=== PATIENT | female | born 1950 | race Caucasian/White ===

== ENCOUNTER → 2022-04-29 15:07 | Outpatient (CLI) | payer MEDICARE, OTHER, SELFPAY ==
[2022-04-29 15:49] LABS: Influenza A - CEPHEID Flu A NEGATIVE (NEGATIVE); Influenza B - CEPHEID Flu B NEGATIVE (NEGATIVE); Respiratory Syncytial Virus Negative (Negative)
[2022-04-29 15:55] LABS: COVID-19 CEPHEID 4-PLEX PCR Negative (Negative)
== END ==
PROVIDERS: Visit Provider Physician Assistant
DX: J34.89 Other specified disorders of nose and nasal sinuses (principal)
CPT/HCPCS: 0241U

== ENCOUNTER → 2022-04-29 15:49 | Outpatient (CLI) | payer OTHER, SELFPAY ==
--- NOTE | 2022-04-29 15:51 | DI.RAD.S_ITS ---
PROCEDURE: XR CHEST 2V INDICATIONS: Asthma TECHNIQUE: 2 views of the chest were acquired. COMPARISON: None. FINDINGS: Surgical changes and devices: Sternotomy wires and mediastinal clips are seen. Lungs and pleura: Lungs are clear. No pleural effusions or pneumothorax. Mediastinum: The cardiac contours are within normal limits. The aorta demonstrates calcification and tortuosity. Bones and chest wall: No suspicious bony abnormalities. Age-appropriate bony degenerative changes are seen. Soft tissues appear unremarkable. IMPRESSION: Clear lungs. Postoperative and degenerative changes are seen. Dictated by: Joey Pryor M.D. on 04/29/2022 at 18:03 Approved by: Joey Pryor M.D. on 04/29/2022 at 18:04
== END ==
PROVIDERS: Referring Provider Physician Assistant; Visit Provider Physician Assistant
DX: J45.901 Unspecified asthma with (acute) exacerbation (principal); J34.89 Other specified disorders of nose and nasal sinuses
CPT/HCPCS: 0241U; 71046

== ENCOUNTER 2022-04-30 21:39 | Inpatient (IN) | payer OTHER, SELFPAY ==
[2022-04-30 21:45] VITALS: BP 155/83; PULSE 74; RESP 20; TEMP 36.9; O2SAT 100; BMI 29.4
--- NOTE | 2022-04-30 22:12 | DI.RAD.S_ITS ---
PROCEDURE: XR CHEST 1V INDICATIONS: Shortness of breath TECHNIQUE: One view of the chest was acquired. COMPARISON: [facility], , XR CHEST 2V, 04/29/2022, 17:00. FINDINGS: Surgical changes and devices: Postsurgical changes redemonstrated within the mediastinum compatible with prior CABG. Lungs and pleura: Lungs demonstrate no acute consolidation. No pleural effusions or pneumothorax. Mediastinum: Mediastinal contours are unchanged. Heart size is enlarged. Bones and chest wall: No suspicious bony lesions. Overlying soft tissues appear unremarkable. IMPRESSION: 1. No acute cardiopulmonary disease. Dictated by: Giovanni Drummond M.D. on 04/30/2022 at 23:11 Approved by: Giovanni Drummond M.D. on 04/30/2022 at 23:12
[2022-04-30] MEDS: ALBUTEROL/IPRATROPIUM 3 ML AMPUL INH (22:22)
[2022-04-30] MEDS: methylPREDNISolone 125 MG/2 ML VIAL IV (22:31)
[2022-04-30 22:35] VITALS: PULSE 69; O2SAT 95
[2022-04-30] MEDS: ALBUTEROL 2.5 MG/3 ML NEB (ADULT) 10 MG INH (22:57)
[2022-04-30 23:00] VITALS: BP 138/69; PULSE 65; O2SAT 95
[2022-04-30 23:04] LABS: Add Manual Diff / Slide Review NO; Basophils Absolute Auto 0 /uL (0-100); Basophils Percent Auto 0.3 % (0-2); Eosinophils Absolute Auto 0 /uL (0-450); Hematocrit 34.6 % (36-46); Hemoglobin 11.9 g/dL (12.0-16.0); Lymphocytes Absolute Auto 900 /uL (1100-4500); Lymphocytes Percent Auto 10.7 % (25-40); Mean Corpuscular HGB Conc 34.5 % (30-36); Mean Corpuscular Hemoglobin 32.3 PG (26-34); Mean Corpuscular Volume 93.6 fL (80-100); Monocytes Absolute Auto 800 /uL (0-900); Monocytes Percent Auto 9.7 % (3-14); Neutrophils Absolute Auto 6800 /uL (1500-7000); Neutrophils Percent Auto 79.3 % (50-75); Platelet Count 246 X10^3/uL (150-400); Red Blood Cell Count 3.69 X10^6/uL (4.0-5.2); Red Cell Distribution Width 12.6 % (11.6-14.8); White Blood Cell Count 8.5 X10^3/uL (4.5-11.0)
[2022-04-30 23:10] LABS: INR 1.1 (0.9-1.3); Prothrombin Time 13.1 SECONDS (10.1-12.7)
[2022-04-30 23:19] LABS: Lactate (Lactic Acid) 1.6 mmol/L (0.7-2.1)
[2022-04-30 23:24] LABS: Alanine Aminotransferase 28 IU/L (<35); Albumin 4.2 g/dL (3.5-5.0); Albumin Globulin Ratio 1.2 (1.0-2.8); Alkaline Phosphatase 66 U/L (38-126); Aspartate Aminotransferase 55 IU/L (14-36); BUN Creatinine Ratio 24.2 (6-22); Bilirubin Total 0.4 mg/dL (0.2-1.3); Blood Urea Nitrogen 16 mg/dL (7-17); Calcium 8.9 mg/dL (8.4-10.2); Carbon Dioxide 26 mmol/L (22-32); Chloride 97 mmol/L (98-107); Estimated Glomerular Filt Rate > 60 mL/min (>60); Globulin 3.4 g/dL (1.7-4.1); Glucose 122 mg/dL (80-110); HEMOLYSIS < 15 (0-50); Magnesium 1.2 mg/dL (1.6-2.3); Potassium 3.4 mmol/L (3.4-5.1); Sodium 135 mmol/L (137-145); Total Protein 7.6 g/dL (6.3-8.2)
[2022-04-30 23:30] VITALS: BP 115/56; PULSE 81; O2SAT 91
[2022-04-30 23:32] LABS: NT-proBNP (BNP-Adult 18+) 657 pg/mL (<125)
[2022-04-30 23:38] LABS: Troponin I < 0.012 ng/mL (0.01-0.034)
[2022-04-30 23:39] LABS: Procalcitonin 0.05 ng/mL (<0.5)
[2022-04-30] MEDS: MAGNESIUM SULFATE 2 GM/50 ML PIGGYBACK IV (23:49)
[2022-05-01] VITALS (36 sets, daily range): BP systolic 107–156; BP diastolic 57–87; PULSE 62–97; RESP 16–20; TEMP 36.1–37.4; O2SAT 85–96; BMI 29.1
--- NOTE | 2022-05-01 00:16 | ED.URI ---
HPI - URI/Sore Throat General Chief Complaint: Upper Respiratory Symptoms Stated Complaint: Pulse ox @ 78 earlier, 85 now, Coughing, Asthma Time Seen by Provider: 04/30/22 22:48 Source: patient Mode of arrival: Ambulatory History of Present Illness HPI Narrative: Patient is a 72-year-old female history of present today with increasing shortness of breath. She has that is now she has been sick for the last 3-4 days. Stay having coughing and difficulty breathing. She gets coughing spells no acute stop coughing his like her chest is tight been no real chest pain. She denies any peripheral edema. She has had body aches as well. She generally does not feel very well. She states that for they flew to [facility] they encountered implant with a small child and then came home on Sunday, 4 days ago. Since then she has been sick ever since.. Related Data Previous Rx's Medication Instructions Recorded prednisone 5 mg tablet 5 mg PO DAILY Asthma #12 tabs 04/29/22 Allergies Allergy/AdvReac Type Severity Reaction Status Date / Time Penicillins Allergy Intermediate Anaphylaxis Verified 04/29/22 15:00 Review of Systems Review of Systems Narrative: GENERAL: Denies chills, fatigue, malaise, fever, sweats, travel HEENT: Denies sinus pain, ear pain, sore throat, difficulty swallowing, neck pain RESPIRATORY: See HPI CARDIOVASCULAR: Denies chest pain, palpitations, orthopnea, edema GASTROINTESTINAL: Denies nausea, vomiting, abdominal pain, diarrhea, constipation, melena. : Denies dysuria, frequency, incontinence, hematuria, urinary retention, flank pain. MUSCULOSKELETAL: Denies weakness, joint pain, or bony pain SKIN: No rash, no erythema, no pruritus NEUROLOGIC: Denies weakness, dizziness, headache, numbness, change in speech, confusion PSYCHIATRIC: No concerning psychosocial issues. 12 point review of systems is negative except for those stated above and HPI Patient History Medical History Acute laryngitis Exacerbation of asthma Viral URI with cough Social History Smoking Status: Never smoker Smoking Status: Never smoker Substance Use Type: does not use Exam Initial Vital Signs Initial Vital Signs: Vital Signs Temperature 98.4 F 04/30/22 21:45 Pulse Rate 74 04/30/22 21:45 Respiratory Rate 20 04/30/22 21:45 Blood Pressure 155/83 H 04/30/22 21:45 Pulse Oximetry 100 04/30/22 21:45 Oxygen Delivery Method 04/30/22 21:45 GENERAL: Alert some more year old female appears to not feel well and [id number] degree distress HEENT: Head atraumatic,EOMI, pupils reactive, face symmetric, [moist] mucous membranes CARDIOVASCULAR: Regular rate and rhythm without murmurs, rubs or gallops. RESPIRATORY: Decreased breath sounds bilaterally mild wheezing course at Bases. She certainly gets to coughing spells like stop. ABDOMEN: Soft, nontender. Normoactive bowel sounds all 4 quadrants. No guarding or rebound. EXTREMITIES: Normal range of motion, no clubbing or edema. Neurovascularly intact NEUROLOGICAL: Alert and oriented x4.Normal gait and speech. SKIN: Warm, dry, no laceration, no petechiae, no rashes or lesions. Course Orders Ordered: ED Orders 05/01/22 00:20 CT angio chest PE protocol Stat 05/01/22 00:34 Respiratory Panel (Film Array) Stat Acetaminophen (Acetaminophen 325 Mg Tablet) 650 mg PO Q6H PRN PRN Reason: Fever/Mild Pain (1-3) Albuterol/Ipratropium (Albuterol/Ipratropium 3 Ml Ampul) 3 ml INH RTQ4HR IRENA Last Admin: 05/01/22 04:25 Dose: Not Given Documented By: KERA Aspirin (Aspirin Ec 81 Mg Tablet) 81 mg PO DAILY [facility] Enoxaparin Sodium (Enoxaparin 40 Mg/0.4 Ml Syringe) 40 mg SUBCUT DAILY [facility] Furosemide (Furosemide 20 Mg/2 Ml Vial) 20 mg IV DAILY [facility] Guaifenesin/Codeine Phosphate (Codeine/Guaifenesin Liquid 5ml Udc) 5 ml PO Q6H PRN PRN Reason: Cough Last Admin: 05/01/22 03:49 Dose: 5 ml Documented By: HARRIET Naloxone HCl (Naloxone 0.4 Mg/Ml Vial) 0.2 mg IV Q2MIN PRN PRN Reason: Opiate Reversal Ondansetron HCl (Ondansetron 4 Mg/2 Ml Inj) 4 mg IV Q8HR PRN PRN Reason: Nausea And Vomiting Prednisone (Prednisone 20 Mg Tablet) 40 mg PO DAILY [facility] Stop: 05/05/22 08:59 Discontinued Medications Albuterol (Albuterol 2.5 Mg/3 Ml Neb (Adult)) 10 mg INH NOW ONE Stop: 04/30/22 22:50 Last Admin: 04/30/22 22:57 Dose: 10 mg Documented By: HARRIET Albuterol/Ipratropium (Albuterol/Ipratropium 3 Ml Ampul) 3 ml INH NOW ONE Stop: 04/30/22 22:15 Last Admin: 04/30/22 22:22 Dose: 3 ml Documented By: KERA Magnesium Sulfate (Magnesium Sulfate) 2 gm in 50 mls @ 25 mls/hr IV NOW ONE Stop: 05/01/22 01:44 Last Infusion: 05/01/22 00:39 Dose: 0 mls/hr Documented By: HARRIET Co-signed By: ONIEL Admin: 04/30/22 23:49 Dose: 25 mls/hr Documented By: HARRIET Co-signed By: ONIEL Methylprednisolone (Methylprednisolone 125 Mg/2 Ml Vial) 125 mg IV NOW ONE Stop: 04/30/22 22:15 Last Admin: 04/30/22 22:31 Dose: 125 mg Documented By: HARRIET Vital Signs Vital signs: Vital Signs - 8 hr 05/01/22 00:00 05/01/22 00:00 Pulse Rate 82 Blood Pressure 107/62 Pulse Oximetry 92 MDM - URI/Sore Throat Lab Data Result diagrams: 05/01/22 05:50 05/01/22 05:50 Labs: Lab Results 04/30/22 04/30/22 04/30/22 Range/Units 22:23 22:23 22:23 WBC 8.5 (4.5-11.0) X10^3/uL RBC 3.69 L (4.0-5.2) X10^6/uL Hgb 11.9 L (12.0-16.0) g/dL Hct 34.6 L (36-46) % MCV 93.6 (80-100) fL MCH 32.3 (26-34) PG MCHC 34.5 (30-36) % RDW 12.6 (11.6-14.8) % Plt Count 246 (150-400) X10^3/uL Neut % (Auto) 79.3 H (50-75) % Lymph % (Auto) 10.7 L (25-40) % Amite % (Auto) 9.7 (3-14) % Eos % (Auto) 0.0 L (2-4) % Baso % (Auto) 0.3 (0-2) % Neut # (Auto) 6800 (3410-5636) /uL Lymph # (Auto) 900 L (4561-5762) /uL Amite # (Auto) 800 (0-900) /uL Eos # (Auto) 0 (0-450) /uL Baso # (Auto) 0 (0-100) /uL PT 13.1 H (10.1-12.7) SECONDS INR 1.1 (0.9-1.3) Sodium 135 L (137-145) mmol/L Potassium 3.4 (3.4-5.1) mmol/L Chloride 97 L (98-107) mmol/L Carbon Dioxide 26 (22-32) mmol/L BUN 16 (7-17) mg/dL Creatinine 0.66 (0.52-1.04) mg/dL Estimated GFR > 60 (>60) mL/min BUN/Creatinine Ratio 24.2 H (6-22) Glucose 122 H (80-110) mg/dL Lactate (0.7-2.1) mmol/L Calcium 8.9 (8.4-10.2) mg/dL Magnesium (1.6-2.3) mg/dL Total Bilirubin 0.4 (0.2-1.3) mg/dL AST 55 H (14-36) IU/L ALT 28 (<35) IU/L Alkaline Phosphatase 66 (38-126) U/L Troponin I < 0.012 (0.01-0.034) ng/mL NT-Pro-B Natriuret Pep Cancelled Total Protein 7.6 (6.3-8.2) g/dL Albumin 4.2 (3.5-5.0) g/dL Globulin 3.4 (1.7-4.1) g/dL Albumin/Globulin Ratio 1.2 (1.0-2.8) Procalcitonin (<0.5) ng/mL Chlamy pneumoniae PCR (Not Detect) Adenovirus (PCR) (Not Detect) B. pertussis DNA (PCR) (Not Detecte) B.parapertussis DNA PCR (Not Detecte) Coronavirus OC43 (PCR) (Not Detect) Coronavirus HKU1 (PCR) (Not Detect) Coronavirus 229E (PCR) (Not Detect) SARS-CoV-2 (PCR) (Not Detecte) Coronavirus NL63 (PCR) (Not Detect) Human Metapneumovir PCR (Not Detect) Influenza Type A (PCR) (Not Detect) Influenza Type B (PCR) (Not Detect) M. pneumoniae (PCR) (Not Detect) Parainfluenza 1 (PCR) (Not Detect) Parainfluenza 2 (PCR) (Not Detect) Parainfluenza 3 (PCR) (Not Detect) Parainfluenza 4 (PCR) (Not Detect) RSV (PCR) (Not Detect) Entero/Rhino (PCR) (Not Detect) 04/30/22 04/30/22 04/30/22 Range/Units 22:23 22:23 22:23 WBC (4.5-11.0) X10^3/uL RBC (4.0-5.2) X10^6/uL Hgb (12.0-16.0) g/dL Hct (36-46) % MCV (80-100) fL MCH (26-34) PG MCHC (30-36) % RDW (11.6-14.8) % Plt Count (150-400) X10^3/uL Neut % (Auto) (50-75) % Lymph % (Auto) (25-40) % Amite % (Auto) (3-14) % Eos % (Auto) (2-4) % Baso % (Auto) (0-2) % Neut # (Auto) (3560-3056) /uL Lymph # (Auto) (8519-0010) /uL Amite # (Auto) (0-900) /uL Eos # (Auto) (0-450) /uL Baso # (Auto) (0-100) /uL PT (10.1-12.7) SECONDS INR (0.9-1.3) Sodium (137-145) mmol/L Potassium (3.4-5.1) mmol/L Chloride (98-107) mmol/L Carbon Dioxide (22-32) mmol/L BUN (7-17) mg/dL Creatinine (0.52-1.04) mg/dL Estimated GFR (>60) mL/min BUN/Creatinine Ratio (6-22) Glucose (80-110) mg/dL Lactate 1.6 (0.7-2.1) mmol/L Calcium (8.4-10.2) mg/dL Magnesium 1.2 L (1.6-2.3) mg/dL Total Bilirubin (0.2-1.3) mg/dL AST (14-36) IU/L ALT (<35) IU/L Alkaline Phosphatase (38-126) U/L Troponin I (0.01-0.034) ng/mL NT-Pro-B Natriuret Pep Total Protein (6.3-8.2) g/dL Albumin (3.5-5.0) g/dL Globulin (1.7-4.1) g/dL Albumin/Globulin Ratio (1.0-2.8) Procalcitonin 0.05 (<0.5) ng/mL Chlamy pneumoniae PCR (Not Detect) Adenovirus (PCR) (Not Detect) B. pertussis DNA (PCR) (Not Detecte) B.parapertussis DNA PCR (Not Detecte) Coronavirus OC43 (PCR) (Not Detect) Coronavirus HKU1 (PCR) (Not Detect) Coronavirus 229E (PCR) (Not Detect) SARS-CoV-2 (PCR) (Not Detecte) Coronavirus NL63 (PCR) (Not Detect) Human Metapneumovir PCR (Not Detect) Influenza Type A (PCR) (Not Detect) Influenza Type B (PCR) (Not Detect) M. pneumoniae (PCR) (Not Detect) Parainfluenza 1 (PCR) (Not Detect) Parainfluenza 2 (PCR) (Not Detect) Parainfluenza 3 (PCR) (Not Detect) Parainfluenza 4 (PCR) (Not Detect) RSV (PCR) (Not Detect) Entero/Rhino (PCR) (Not Detect) 04/30/22 05/01/22 Range/Units 22:23 00:34 WBC (4.5-11.0) X10^3/uL RBC (4.0-5.2) X10^6/uL Hgb (12.0-16.0) g/dL Hct (36-46) % MCV (80-100) fL MCH (26-34) PG MCHC (30-36) % RDW (11.6-14.8) % Plt Count (150-400) X10^3/uL Neut % (Auto) (50-75) % Lymph % (Auto) (25-40) % Amite % (Auto) (3-14) % Eos % (Auto) (2-4) % Baso % (Auto) (0-2) % Neut # (Auto) (2726-7451) /uL Lymph # (Auto) (6451-1018) /uL Amite # (Auto) (0-900) /uL Eos # (Auto) (0-450) /uL Baso # (Auto) (0-100) /uL PT (10.1-12.7) SECONDS INR (0.9-1.3) Sodium (137-145) mmol/L Potassium (3.4-5.1) mmol/L Chloride (98-107) mmol/L Carbon Dioxide (22-32) mmol/L BUN (7-17) mg/dL Creatinine (0.52-1.04) mg/dL Estimated GFR (>60) mL/min BUN/Creatinine Ratio (6-22) Glucose (80-110) mg/dL Lactate (0.7-2.1) mmol/L Calcium (8.4-10.2) mg/dL Magnesium (1.6-2.3) mg/dL Total Bilirubin (0.2-1.3) mg/dL AST (14-36) IU/L ALT (<35) IU/L Alkaline Phosphatase (38-126) U/L Troponin I (0.01-0.034) ng/mL NT-Pro-B Natriuret Pep 657 H Total Protein (6.3-8.2) g/dL Albumin (3.5-5.0) g/dL Globulin (1.7-4.1) g/dL Albumin/Globulin Ratio (1.0-2.8) Procalcitonin (<0.5) ng/mL Chlamy pneumoniae PCR Not detected (Not Detect) Adenovirus (PCR) Not detected (Not Detect) B. pertussis DNA (PCR) Not detected (Not Detecte) B.parapertussis DNA PCR Not detected (Not Detecte) Coronavirus OC43 (PCR) Not detected (Not Detect) Coronavirus HKU1 (PCR) Not detected (Not Detect) Coronavirus 229E (PCR) Not detected (Not Detect) SARS-CoV-2 (PCR) Not detected (Not Detecte) Coronavirus NL63 (PCR) Not detected (Not Detect) Human Metapneumovir PCR Not detected (Not Detect) Influenza Type A (PCR) Not detected (Not Detect) Influenza Type B (PCR) Not detected (Not Detect) M. pneumoniae (PCR) Not detected (Not Detect) Parainfluenza 1 (PCR) Not detected (Not Detect) Parainfluenza 2 (PCR) Not detected (Not Detect) Parainfluenza 3 (PCR) Not detected (Not Detect) Parainfluenza 4 (PCR) Not detected (Not Detect) RSV (PCR) Not detected (Not Detect) Entero/Rhino (PCR) Detected H (Not Detect) Imaging Data Chest x-ray: Radiologist's Impression: Close Chest CTA (Signed) Giovanni Drummond - 05/01/22 Chest X-Ray (Signed) Giovanni Drummond - 04/30/22 Chest X-Ray (Signed) Joey Pryor - 04/29/22 [place] [address] XRay Report Signed Patient: Chanel Arias MR#: [id number] : 1950 Acct:[id number] Age/Sex: 72 / F Date of Service: 04/30/22 Loc: ED Accession Number: [id number] ?? Procedure: XR chest 1V Ordering Provider: Destiny Coker D.O. PROCEDURE:? XR CHEST 1V ? INDICATIONS:? Shortness of breath ? TECHNIQUE:? One view of the chest was acquired.? ? COMPARISON:? [facility], , XR CHEST 2V, 04/29/2022, 17:00. ? FINDINGS:? ? Surgical changes and devices:? Postsurgical changes redemonstrated within the mediastinum compatible with prior CABG.? ? Lungs and pleura:? Lungs demonstrate no acute consolidation.? No pleural effusions or pneumothorax.? ? Mediastinum:? Mediastinal contours are unchanged.? Heart size is enlarged. ? Bones and chest wall:? No suspicious bony lesions.? Overlying soft tissues appear unremarkable.? ? IMPRESSION:? ? 1.? No acute cardiopulmonary disease. ? ? ? Dictated by: Giovanni Drummond M.D. on 04/30/2022 at 23:11 ? ? Approved by: Giovanni Drummond M.D. on 04/30/2022 at 23:12 ? CT scan - chest: Radiologist's Impression: [place] [address] CT Scan Report Signed Patient: Chanel Arias MR#: [id number] : 1950 Acct:[id number] Age/Sex: 72 / F Date of Service: 05/01/22 Loc: 90B-1 Accession Number: [id number] ?? Procedure: CT angio chest PE protocol Ordering Provider: Destiny Coker D.O. PROCEDURE:? CT ANGIO CHEST PE PROTOCOL ? INDICATIONS:? hypoxia ? TECHNIQUE:? After the administration of intravenous contrast, 2 mm thick sections acquired from the pulmonary apices to the posterior costophrenic angles.? 3-dimensional maximum intensity projection (MIP) coronal and sagittal reformats were then acquired through the thorax.? For radiation dose reduction, the following was used:? automated exposure control, adjustment of mA and/or kV according to patient size.? ? COMPARISON:? [facility], CR, XR CHEST 1V, 04/30/2022, 22:15. ? FINDINGS:? Image quality:? Excellent.? ? Pulmonary arteries:? Pulmonary arteries demonstrate no intraluminal filling defects to suggest central pulmonary embolism.? There is enlargement of the pulmonary arteries including marked enlargement of the main pulmonary artery measuring up to 4.4 cm suggestive of pulmonary arterial hypertension. ? Lower Neck: No lymphadenopathy by size criteria. Thyroid:? Visualized thyroid demonstrates no discrete nodules. Axillae: No lymphadenopathy by size criteria. Chest Wall:? Unremarkable.? Bones: Visualized osseous structures demonstrate no suspicious lesions. ? Lungs and Airways:? No acute consolidation.? There are indistinct confluent irregular ground-glass opacities within the lower lobes, right greater than left.? There are linear areas of scarring bilaterally.? The trachea and central airways are patent. Pleura: No pneumothorax or pleural effusions.? ? Heart: Heart size is mildly enlarged.? No pericardial effusion.? Postsurgical changes are demonstrated in the mediastinum compatible with prior CABG. Thoracic Vessels: The ascending thoracic aorta is enlarged, measuring up to 4.8 cm.? The aortic arch and descending aorta are normal in caliber. Mediastinum and Yolanda: No lymphadenopathy by size criteria. Esophagus: No wall thickening. No hiatal hernia. ? Abdomen:? Visualized upper abdominal solid organs appear normal in the early arterial phase of enhancement.? ? IMPRESSION:? ? 1. No evidence of pulmonary embolism.? Marked enlargement of the pulmonary arteries suggestive of pulmonary arterial hypertension. ? 2. Aneurysmal dilatation of the ascending thoracic aorta. ? 3. Indistinct irregular ground-glass opacities within the lung bases.? The findings are nonspecific and may represent an infectious or inflammatory process such as atypical pneumonia.? The differential also includes scarring and atelectasis.? ? ? Dictated by: Giovanni Drummond M.D. on 05/01/2022 at 1:43 ? ? ECG Data Interpretation: Sinus rhythm rate 67 IA interval 178 QRS 96 QTC 4 to when I no ST changes Q-waves noted in the pre only MDM Narrative Medical decision making narrative: Patient is requiring 1-2 L of oxygen. She is given DuoNeb which helps a little bit. And then she is given 10 mg of albuterol and Solu-Medrol. She has had a quite bad coughing spells and can stop coughing. O2 continues to drop 87% on room air. CT angio was negative for pulmonary embolism chest x-ray is also negative. She has not started antibiotics, negative lactate normal procalcitonin and no pneumonia on x-ray. BNP minimally elevated at 657. Patient has sinus symptoms consistent with an upper respiratory bronchitis and asthma exacerbation. Not requiring high-flow nasal cannula or BiPAP. She is admitted to hospitalistAlfreda Rios accepts patient Discharge Plan Departure Patient Disposition: Admitted As Inpatient Clinical Impression: Exacerbation of asthma, Viral URI with cough, Hypoxia Admit Date/Time: 05/01/22 00:35 Admit Provider: Morenita Rios
--- NOTE | 2022-05-01 00:20 | DI.CT.S_ITS ---
PROCEDURE: CT ANGIO CHEST PE PROTOCOL INDICATIONS: hypoxia TECHNIQUE: After the administration of intravenous contrast, 2 mm thick sections acquired from the pulmonary apices to the posterior costophrenic angles. 3-dimensional maximum intensity projection (MIP) coronal and sagittal reformats were then acquired through the thorax. For radiation dose reduction, the following was used: automated exposure control, adjustment of mA and/or kV according to patient size. COMPARISON: [facility], , XR CHEST 1V, 04/30/2022, 22:15. FINDINGS: Image quality: Excellent. Pulmonary arteries: Pulmonary arteries demonstrate no intraluminal filling defects to suggest central pulmonary embolism. There is enlargement of the pulmonary arteries including marked enlargement of the main pulmonary artery measuring up to 4.4 cm suggestive of pulmonary arterial hypertension. Lower Neck: No lymphadenopathy by size criteria. Thyroid: Visualized thyroid demonstrates no discrete nodules. Axillae: No lymphadenopathy by size criteria. Chest Wall: Unremarkable. Bones: Visualized osseous structures demonstrate no suspicious lesions. Lungs and Airways: No acute consolidation. There are indistinct confluent irregular ground-glass opacities within the lower lobes, right greater than left. There are linear areas of scarring bilaterally. The trachea and central airways are patent. Pleura: No pneumothorax or pleural effusions. Heart: Heart size is mildly enlarged. No pericardial effusion. Postsurgical changes are demonstrated in the mediastinum compatible with prior CABG. Thoracic Vessels: The ascending thoracic aorta is enlarged, measuring up to 4.8 cm. The aortic arch and descending aorta are normal in caliber. Mediastinum and Yolanda: No lymphadenopathy by size criteria. Esophagus: No wall thickening. No hiatal hernia. Abdomen: Visualized upper abdominal solid organs appear normal in the early arterial phase of enhancement. IMPRESSION: 1. No evidence of pulmonary embolism. Marked enlargement of the pulmonary arteries suggestive of pulmonary arterial hypertension. 2. Aneurysmal dilatation of the ascending thoracic aorta. 3. Indistinct irregular ground-glass opacities within the lung bases. The findings are nonspecific and may represent an infectious or inflammatory process such as atypical pneumonia. The differential also includes scarring and atelectasis. Dictated by: Giovanni Drummond M.D. on 05/01/2022 at 1:43 Approved by: Giovanni Drummond M.D. on 05/01/2022 at 1:49
[2022-05-01 02:20] LABS: Adenovirus Not Detected (Not Detect); B. parapertussis Not Detected (Not Detecte); Bordetella pertussis Not Detected (Not Detecte); Chlamydophila pneumoniae Not Detected (Not Detect); Coronavirus 229E Not Detected (Not Detect); Coronavirus HKU1 Not Detected (Not Detect); Coronavirus NL 63 Not Detected (Not Detect); Coronavirus OC43 Not Detected (Not Detect); Human Metapneumovirus Not Detected (Not Detect); Human Rhinovirus/Enterovirus Detected (Not Detect); Influenza A Not Detected (Not Detect); Influenza B Not Detected (Not Detect); Mycoplasma pneumoniae Not Detected (Not Detect); Parainfluenza Virus 1 Not Detected (Not Detect); Parainfluenza Virus 2 Not Detected (Not Detect); Parainfluenza Virus 3 Not Detected (Not Detect); Parainfluenza Virus 4 Not Detected (Not Detect); Respiratory Syncytial Virus Not Detected (Not Detect); SARS- CoV-2 Not Detected (Not Detecte)
[2022-05-01] MEDS: CODEINE/GUAIFENESIN LIQUID 5ML UDC 5 ML PO ×2 (03:49→11:17)
[2022-05-01 06:22] LABS: BUN Creatinine Ratio 27.3 (6-22); Blood Urea Nitrogen 15 mg/dL (7-17); Calcium 9.2 mg/dL (8.4-10.2); Carbon Dioxide 28 mmol/L (22-32); Chloride 96 mmol/L (98-107); Cholesterol 173 mg/dL (140-199); Estimated Glomerular Filt Rate > 60 mL/min (>60); Glucose 192 mg/dL (80-110); HDL Cholesterol 45 mg/dL (40-60); HEMOLYSIS < 15 (0-50); LDL Cholesterol Calculated 98 mg/dL (<100); Magnesium 1.9 mg/dL (1.6-2.3); Potassium 3.7 mmol/L (3.4-5.1); Sodium 137 mmol/L (137-145); Triglycerides 152 mg/dL (35-150)
[2022-05-01 06:31] LABS: NT-proBNP (BNP-Adult 18+) 779 pg/mL (<125)
[2022-05-01 06:34] LABS: Troponin I < 0.012 ng/mL (0.01-0.034)
[2022-05-01 06:43] LABS: Add Manual Diff / Slide Review NO; Basophils Absolute Auto 0 /uL (0-100); Eosinophils Absolute Auto 0 /uL (0-450); Hematocrit 35.2 % (36-46); Hemoglobin 12.3 g/dL (12.0-16.0); Lymphocytes Absolute Auto 700 /uL (1100-4500); Lymphocytes Percent Auto 7.9 % (25-40); Mean Corpuscular Hemoglobin 32.8 PG (26-34); Mean Corpuscular Volume 93.7 fL (80-100); Monocytes Absolute Auto 200 /uL (0-900); Monocytes Percent Auto 2.5 % (3-14); Neutrophils Absolute Auto 8100 /uL (1500-7000); Neutrophils Percent Auto 89.6 % (50-75); Platelet Count 268 X10^3/uL (150-400); Red Blood Cell Count 3.76 X10^6/uL (4.0-5.2); Red Cell Distribution Width 12.6 % (11.6-14.8)
[2022-05-01] MEDS: ALBUTEROL/IPRATROPIUM 3 ML AMPUL INH ×4 (08:16→19:14)
[2022-05-01] MEDS: ASPIRIN EC 81 MG TABLET PO (09:39)
[2022-05-01] MEDS: FUROSEMIDE 20 MG/2 ML VIAL IV (09:39)
[2022-05-01] MEDS: predniSONE 20 MG TABLET 40 MG PO (09:39)
[2022-05-01] MEDS: ENOXAPARIN 40 MG/0.4 ML SYRINGE SUBCUT (09:40)
[2022-05-01 11:42] LABS: Appearance Urine UA CLEAR; Bilirubin Urine UA NEGATIVE (NEGATIVE); Color Urine UA YELLOW; Glucose Urine UA NEGATIVE (Negative); Ketones Urine UA NEGATIVE (NEGATIVE); Leukocyte Esterase Urine UA NEGATIVE (NEGATIVE); Nitrite Urine UA NEGATIVE (Negative); Occult Blood Urine UA NEGATIVE (Negative); Protein Urine UA NEGATIVE (Negative); Urobilinogen Urine UA 0.2 E.U./dL (0.2)
[2022-05-01 11:44] LABS: pH Urine UA 6.5 (4.5-8.0)
[2022-05-01 11:48] LABS: Bacteria Urine None Seen; Culture Indicated Urine Cult Not Indicated; RBC Urine None Seen (0-5/HPF); WBC Urine None Seen (0-5/HPF)
[2022-05-01 13:14] LABS: Troponin I < 0.012 ng/mL (0.01-0.034)
[2022-05-01] MEDS: ACETAMINOPHEN 325 MG TABLET 650 MG PO (14:14)
--- NOTE | 2022-05-01 14:51 | P.HP_ITS ---
History of Present Illness History of Present Illness Date Patient Seen: 05/01/22 Time Patient Seen: 01:15 Chief complaint: Pulse ox @ 78 earlier, 85 now, Coughing, Asthma Narrative: Chanel Ulloa is a 72-year-old female history of CABG x5, essential hypertension, CAD, depression, GERD mild asthma, who presented to the ED with increasing shortness of breath, cough with difficulty breathing, coughing fits that are unrelenting, muscular chest discomfort/tightness from coughing, body aches, generally just feels unwell/ sick, worsening over the last 3-4 days. ? She denies any peripheral edema.? She states that for Thanksgiving they flew to [facility] they encountered multiple family members and friends who had the flu, she also picked up a diarrhea bug and had diarrhea for 2-3days, decreased appetite, and then came home on Sunday, 4 days ago.? Since then she has been sick ever since. In ED patient was orthopneic, short of breath, tachypneic, mildly elevated blood pressure, hypoxic 78% on room air and wheezing. Patient was seen at the walk-in clinic early or in the day was put on 5 mg of prednisone. When she did not improve and only continued to worsen came into the ED department. Patient states that her cardiac health is managed by the [facility] she had her last echo and stress in 2020 and states that it was normal and has no history of heart failure. Although I found patient to be a poor historian and unable to recall her medications Patient on admit denies headache, changes in vision, weakness, numbness, tingling, falls, head injury, skin infections, wounds, urinary urgency frequency dysuria, hematuria, hematemesis, melena, recent changes to her medication. Denies history of blood clots. At the time of admit patient's vitals are stable temp 98.4?, BP 138/69, HR 65, R 20, O2 saturation 95% on 2 L nasal cannula. Patient is ill-appearing has a fairly intractable cough wet coarse audible wheezing, and she is a poor historian unable to give a coherent hx, HPI, Meds, family hx ROS. Patient has no WBC or left shift H&H 11.9/34.6 patient's labs are predominantly unremarkable with the exception of low magnesium 1.2 procalcitonin WNL, BNP 657, creatinine clearance 95. Chest x-ray was negative for any acute cardiopulmonary process, but patient's CTA demonstrated marked enlargement of the pulmonary arteries, and an aneurysmal dilatation of the ascending thoracic aorta, with indistinct irregular ground-glass opacities within the lung bases.? Patient admitted with acute respiratory failure with mild hypoxia,and asthma exacerbation. Patient History Medical History Acute laryngitis Coronary artery disease Depression Essential hypertension Exacerbation of asthma GERD (gastroesophageal reflux disease) Viral URI with cough Surgical History History of coronary artery bypass graft Family & Social History Family history unavailable: No (Patient unable to recall family HX) Social History: household members spouse Prior Living Arrangements House Safety & Behavioral: Feels Safe in Current Yes Environment Been Physically Hurt or No Threatened By a Person Tobacco & Substance use: Smoking Status Former smoker alcohol intake current alcohol intake frequency holiday/special occasion Substance Use Type does not use Meds Home Medications and Allergies Home Medications Medication Instructions Recorded Confirmed Type albuterol sulfate 90 mcg/actuation 2 puff inhalation QID PRN 05/01/22 05/01/22 History aerosol inhaler Shortness Of Breath Or Wheezing amlodipine 10 mg tablet 10 mg PO BEDTIME 05/01/22 05/01/22 History aspirin 325 mg capsule 325 mg PO BEDTIME 05/01/22 05/01/22 History atorvastatin 40 mg tablet 40 mg PO DAILY 05/01/22 05/01/22 History fluoxetine 20 mg capsule 20 mg PO DAILY 05/01/22 05/01/22 History fluticasone propionate 110 2 puff inhalation BID 05/01/22 05/01/22 History mcg/actuation HFA aerosol inhaler (Flovent HFA) hydrochlorothiazide 25 mg tablet 25 mg PO DAILY 05/01/22 05/01/22 History losartan 50 mg tablet 50 mg PO BID 05/01/22 05/01/22 History magnesium oxide 250 mg PO BEDTIME 05/01/22 05/01/22 History metoprolol succinate 100 mg 100 mg PO DAILY 05/01/22 05/01/22 History tablet,extended release 24 hr omeprazole 20 mg capsule,delayed 20 mg PO DAILY 05/01/22 05/01/22 History release potassium chloride 10 mEq 10 meq PO BEDTIME 05/01/22 05/01/22 History tablet,extended release Allergies Allergy/AdvReac Type Severity Reaction Status Date / Time Penicillins Allergy Intermediate Anaphylaxis Verified 04/29/22 15:00 Review of Systems Review of Systems Narrative: All 12 point systems reviewed with the patient and are negative except otherwise documented Exam Vital Signs (past 8 hours): - 05/01/22 08:17 05/01/22 10:48 05/01/22 07:00 Temperature Pulse Rate 79 78 83 Respiratory Rate 16 18 Blood Pressure Pulse Oximetry 96 96 95 Oxygen Delivery Method Room Air Nasal Cannula Oxygen Flow Rate 4 05/01/22 07:30 05/01/22 08:00 05/01/22 08:30 Temperature Pulse Rate 66 83 83 Respiratory Rate Blood Pressure Pulse Oximetry 94 94 Oxygen Delivery Method Room Air Oxygen Flow Rate 4 05/01/22 09:00 05/01/22 09:09 05/01/22 09:09 Temperature Pulse Rate 80 90 Respiratory Rate Blood Pressure 132/69 Pulse Oximetry 92 Oxygen Delivery Method Oxygen Flow Rate 05/01/22 09:30 05/01/22 10:00 05/01/22 10:00 Temperature Pulse Rate 71 68 Respiratory Rate Blood Pressure 116/61 Pulse Oximetry 92 92 Oxygen Delivery Method Oxygen Flow Rate 05/01/22 10:30 05/01/22 11:00 05/01/22 11:15 Temperature 97.0 F L Pulse Rate 67 86 83 Respiratory Rate 16 Blood Pressure 124/57 L Pulse Oximetry 90 L 95 92 Oxygen Delivery Method Oxygen Flow Rate Oxygen Delivery Method Nasal Cannula Oxygen Flow Rate 4 Narrative Exam Narrative: General:? Patient is a moderately ill sounding and appearing female with an intractable wet gurgling cough audible wheezing in mild distress but not acute respiratory distress at this time. HEENT:? Normocephalic, atraumatic, extraocular muscles intact, oral pharynx is clear and mucous membranes are dry.? Neck is supple and symmetric, trachea is midline, no adenopathy, no thyroid enlargement, nontender, no masses palpated.? Negative for JVD Chest:? Increased work of breathing, labored, occasional retractions, tachypneic without nasal flaring. Lungs:? Auscultation of all lung funez are decreased greater in bilateral bases, equal, coarse, poor air exchange, wet, occasional diffuse rhonchi. Cardio:? Bradycardic rate and rhythm without murmur, rubs, or gallops, no carotid bruit, no cardiac pulsations present. Abdomen:? Soft nontender, negative for organomegaly, or masses.? Bowel sounds are present in all 4 quadrants without guarding or rebound, no CVA tenderness. Musculoskeletal:? Muscle strength and tone are equal within normal limits, no deformity, crepitus, effusions, cyanosis, clubbing or edema present.? Full range of motion intact radial and pedal pulses are normal. Skin:? Warm mild observable diaphoresis and intact without rashes, ulcerations or petechiae.? Neuro:? Alert and orientated x3, moves all extremities, sensation to touch intact, no gross deficits noted of cranial nerves. Patient is rather restless in bed trying to find a position to improve oxygenation Psych:? Patient is a delightful well-kept appearance, appropriate affect, mental status attitude thought context and judgment are slightly altered, appears age appropriate . Objective Labs Result Diagrams: 05/01/22 05:50 05/01/22 05:50 Labs: Laboratory Results - last 24 hr 04/30/22 04/30/22 04/30/22 22:23 22:23 22:23 WBC 8.5 RBC 3.69 L Hgb 11.9 L Hct 34.6 L MCV 93.6 MCH 32.3 MCHC 34.5 RDW 12.6 Plt Count 246 Neut % (Auto) 79.3 H Lymph % (Auto) 10.7 L Har[place] % (Auto) 9.7 Eos % (Auto) 0.0 L Baso % (Auto) 0.3 Neut # (Auto) 6800 Lymph # (Auto) 900 L [place]ney # (Auto) 800 Eos # (Auto) 0 Baso # (Auto) 0 PT 13.1 H INR 1.1 Sodium 135 L Potassium 3.4 Chloride 97 L Carbon Dioxide 26 BUN 16 Creatinine 0.66 Estimated GFR > 60 BUN/Creatinine Ratio 24.2 H Glucose 122 H Lactate Calcium 8.9 Magnesium Total Bilirubin 0.4 AST 55 H ALT 28 Alkaline Phosphatase 66 Troponin I < 0.012 NT-Pro-B Natriuret Pep Cancelled Total Protein 7.6 Albumin 4.2 Globulin 3.4 Albumin/Globulin Ratio 1.2 Triglycerides Cholesterol LDL Cholesterol, Calc HDL Cholesterol Procalcitonin TSH Urine Color Urine Appearance Urine pH Ur Specific [place] Urine Protein Urine Glucose (UA) Urine Ketones Urine Occult Blood Urine Nitrate Urine Bilirubin Urine Urobilinogen Ur Leukocyte Esterase Urine RBC Urine WBC Urine Bacteria Ur Culture Indicated? Chlamy pneumoniae PCR Adenovirus (PCR) B. pertussis DNA (PCR) B.parapertussis DNA PCR Coronavirus OC43 (PCR) Coronavirus HKU1 (PCR) Coronavirus 229E (PCR) SARS-CoV-2 (PCR) Coronavirus NL63 (PCR) Human Metapneumovir PCR Influenza Type A (PCR) Influenza Type B (PCR) M. pneumoniae (PCR) Parainfluenza 1 (PCR) Parainfluenza 2 (PCR) Parainfluenza 3 (PCR) Parainfluenza 4 (PCR) RSV (PCR) Entero/Rhino (PCR) 04/30/22 04/30/22 04/30/22 22:23 22:23 22:23 WBC RBC Hgb Hct MCV MCH MCHC RDW Plt Count Neut % (Auto) Lymph % (Auto) [place] % (Auto) Eos % (Auto) Baso % (Auto) Neut # (Auto) Lymph # (Auto) [place] # (Auto) Eos # (Auto) Baso # (Auto) PT INR Sodium Potassium Chloride Carbon Dioxide BUN Creatinine Estimated GFR BUN/Creatinine Ratio Glucose Lactate 1.6 Calcium Magnesium 1.2 L Total Bilirubin AST ALT Alkaline Phosphatase Troponin I NT-Pro-B Natriuret Pep Total Protein Albumin Globulin Albumin/Globulin Ratio Triglycerides Cholesterol LDL Cholesterol, Calc HDL Cholesterol Procalcitonin 0.05 TSH Urine Color Urine Appearance Urine pH Ur Specific [place] Urine Protein Urine Glucose (UA) Urine Ketones Urine Occult Blood Urine Nitrate Urine Bilirubin Urine Urobilinogen Ur Leukocyte Esterase Urine RBC Urine WBC Urine Bacteria Ur Culture Indicated? Chlamy pneumoniae PCR Adenovirus (PCR) B. pertussis DNA (PCR) B.parapertussis DNA PCR Coronavirus OC43 (PCR) Coronavirus HKU1 (PCR) Coronavirus 229E (PCR) SARS-CoV-2 (PCR) Coronavirus NL63 (PCR) Human Metapneumovir PCR Influenza Type A (PCR) Influenza Type B (PCR) M. pneumoniae (PCR) Parainfluenza 1 (PCR) Parainfluenza 2 (PCR) Parainfluenza 3 (PCR) Parainfluenza 4 (PCR) RSV (PCR) Entero/Rhino (PCR) 04/30/22 05/01/22 05/01/22 22:23 00:34 05:50 WBC 9.0 RBC 3.76 L Hgb 12.3 Hct 35.2 L MCV 93.7 MCH 32.8 MCHC 35.0 RDW 12.6 Plt Count 268 Neut % (Auto) 89.6 H Lymph % (Auto) 7.9 L [place] % (Auto) 2.5 L Eos % (Auto) 0.0 L Baso % (Auto) 0.0 Neut # (Auto) 8100 H Lymph # (Auto) 700 L Harney # (Auto) 200 Eos # (Auto) 0 Baso # (Auto) 0 PT INR Sodium Potassium Chloride Carbon Dioxide BUN Creatinine Estimated GFR BUN/Creatinine Ratio Glucose Lactate Calcium Magnesium Total Bilirubin AST ALT Alkaline Phosphatase Troponin I NT-Pro-B Natriuret Pep 657 H Total Protein Albumin Globulin Albumin/Globulin Ratio Triglycerides Cholesterol LDL Cholesterol, Calc HDL Cholesterol Procalcitonin TSH Urine Color Urine Appearance Urine pH Ur Specific [place] Urine Protein Urine Glucose (UA) Urine Ketones Urine Occult Blood Urine Nitrate Urine Bilirubin Urine Urobilinogen Ur Leukocyte Esterase Urine RBC Urine WBC Urine Bacteria Ur Culture Indicated? Chlamy pneumoniae PCR Not detected Adenovirus (PCR) Not detected B. pertussis DNA (PCR) Not detected B.parapertussis DNA PCR Not detected Coronavirus OC43 (PCR) Not detected Coronavirus HKU1 (PCR) Not detected Coronavirus 229E (PCR) Not detected SARS-CoV-2 (PCR) Not detected Coronavirus NL63 (PCR) Not detected Human Metapneumovir PCR Not detected Influenza Type A (PCR) Not detected Influenza Type B (PCR) Not detected M. pneumoniae (PCR) Not detected Parainfluenza 1 (PCR) Not detected Parainfluenza 2 (PCR) Not detected Parainfluenza 3 (PCR) Not detected Parainfluenza 4 (PCR) Not detected RSV (PCR) Not detected Entero/Rhino (PCR) Detected H 05/01/22 05/01/22 05/01/22 05:50 05:50 05:50 WBC RBC Hgb Hct MCV MCH MCHC RDW Plt Count Neut % (Auto) Lymph % (Auto) [place] % (Auto) Eos % (Auto) Baso % (Auto) Neut # (Auto) Lymph # (Auto) [place] # (Auto) Eos # (Auto) Baso # (Auto) PT INR Sodium 137 Potassium 3.7 Chloride 96 L Carbon Dioxide 28 BUN 15 Creatinine 0.55 Estimated GFR > 60 BUN/Creatinine Ratio 27.3 H Glucose 192 H Lactate Calcium 9.2 Magnesium 1.9 Total Bilirubin AST ALT Alkaline Phosphatase Troponin I < 0.012 NT-Pro-B Natriuret Pep 779 H Total Protein Albumin Globulin Albumin/Globulin Ratio Triglycerides 152 H Cholesterol 173 LDL Cholesterol, Calc 98 HDL Cholesterol 45 Procalcitonin TSH 0.340 L Urine Color Urine Appearance Urine pH Ur Specific [place] Urine Protein Urine Glucose (UA) Urine Ketones Urine Occult Blood Urine Nitrate Urine Bilirubin Urine Urobilinogen Ur Leukocyte Esterase Urine RBC Urine WBC Urine Bacteria Ur Culture Indicated? Chlamy pneumoniae PCR Adenovirus (PCR) B. pertussis DNA (PCR) B.parapertussis DNA PCR Coronavirus OC43 (PCR) Coronavirus HKU1 (PCR) Coronavirus 229E (PCR) SARS-CoV-2 (PCR) Coronavirus NL63 (PCR) Human Metapneumovir PCR Influenza Type A (PCR) Influenza Type B (PCR) M. pneumoniae (PCR) Parainfluenza 1 (PCR) Parainfluenza 2 (PCR) Parainfluenza 3 (PCR) Parainfluenza 4 (PCR) RSV (PCR) Entero/Rhino (PCR) 05/01/22 05/01/22 11:05 12:05 WBC RBC Hgb Hct MCV MCH MCHC RDW Plt Count Neut % (Auto) Lymph % (Auto) [place] % (Auto) Eos % (Auto) Baso % (Auto) Neut # (Auto) Lymph # (Auto) [place] # (Auto) Eos # (Auto) Baso # (Auto) PT INR Sodium Potassium Chloride Carbon Dioxide BUN Creatinine Estimated GFR BUN/Creatinine Ratio Glucose Lactate Calcium Magnesium Total Bilirubin AST ALT Alkaline Phosphatase Troponin I < 0.012 NT-Pro-B Natriuret Pep Total Protein Albumin Globulin Albumin/Globulin Ratio Triglycerides Cholesterol LDL Cholesterol, Calc HDL Cholesterol Procalcitonin TSH Urine Color Yellow Urine Appearance Clear Urine pH 6.5 Ur Specific [place] 1.010 Urine Protein Negative Urine Glucose (UA) Negative Urine Ketones Negative Urine Occult Blood Negative Urine Nitrate Negative Urine Bilirubin Negative Urine Urobilinogen 0.2 Ur Leukocyte Esterase Negative Urine RBC None seen Urine WBC None seen Urine Bacteria None seen Ur Culture Indicated? Cult not indicated Chlamy pneumoniae PCR Adenovirus (PCR) B. pertussis DNA (PCR) B.parapertussis DNA PCR Coronavirus OC43 (PCR) Coronavirus HKU1 (PCR) Coronavirus 229E (PCR) SARS-CoV-2 (PCR) Coronavirus NL63 (PCR) Human Metapneumovir PCR Influenza Type A (PCR) Influenza Type B (PCR) M. pneumoniae (PCR) Parainfluenza 1 (PCR) Parainfluenza 2 (PCR) Parainfluenza 3 (PCR) Parainfluenza 4 (PCR) RSV (PCR) Entero/Rhino (PCR) Assessment & Plan Assessment & Plan narrative: Chanel Ulloa is a 72-year-old female history of CABG x5, essential hypertension, CAD, depression, GERD mild asthma, who presented to the ED with increasing shortness of breath, cough with difficulty breathing, coughing fits that are unrelenting, muscular chest discomfort/tightness from coughing, body aches, generally just feels unwell/ sick, worsening over the last 3-4 days. Patient admitted for acute respiratory failure with mild hypoxia and moderate asthma exacerbation. 1. Acute respiratory failure with mild intermittent hypoxia, asthma exacerbation, moderate, acute on chronic, present on admission Possible atypical pneumonia, significant respiratory viral outbreak-a respiratory panel pending -ED patient was orthopneic, short of breath, tachypneic, mildly elevated blood pressure, hypoxic 78% on room air and wheezing. -admit vitals: 98.4?, BP 138/69, HR 65, R 20, O2 saturation 95% on 2 L nasal cannula. -Chest x-ray was negative. -CTA demonstrated marked enlargement of the pulmonary arteries, and an aneurysmal dilatation of the ascending thoracic aorta, with indistinct irregular ground-glass opacities within the lung bases. -NO WBC or left shift ? -ordered magnesium, procalcitonin, blood cultures, lipids, TSH, urine culture, sputum culture -symptom management respiratory consult, prednisone, DuoNebs, respiratory panel, guaifenesin with codeine. -holding albuterol HFA inhaler, continue Flovent 2 Heart Failure, new onset, acute, with a history of coronary artery disease/CABG x5, chronic present on admission -BNP 657-20 mg IV Lasix once daily gentle diuresis -initial troponin WNL, trend x3 -patient's cardiology is managed by [facility]? -last echo and stress in 2020 and states that it was normal and has no history of heart failure. -patient request to follow up with her group regarding repeat echo and stress test -procalcitonin WNL -consider echo-patient would like to complete echo with her cardiology team. -lipids ordered -continue ASA 3. Hypertension, essential, possible pulmonary, acute on chronic, present on admission -continue amlodipine, losartan, HCTZ, metoprolol, Mag, potassium 4. Depression, chronic, present on admission -continue fluoxetine 5. GERD, chronic, present on admission -continue omeprazole Code status:Full Surrogate decision maker: Spouse Michael LOPEZ PCR:Negative DVT/VTE prophylaxis: Lovenox and SCDs Disposition:? Patient admitted to acute care expected length of stay greater than 2 midnights I have utilized all available immediate resources to obtain, update, or review the patient's current medications. I confirmed that the patient's advanced care plan is present, Code status is documented and/or surrogate decision maker is listed in the patient's medical record. I have personally reviewed patient's chart notes from PCP, specialists, diagnostic imaging, and laboratory, Time Spent With Patient Critical Care time: I spent a total of [] minutes of critical care time on this patient's care today; this time is exclusive of procedural time. Quality VTE Deep Vein Thrombosis/Pulmonary Embolism Present on Admission: No
[2022-05-01] MEDS: LOSARTAN 50 MG TABLET PO ×2 (17:44→21:14)
[2022-05-01] MEDS: AMLODIPINE 5 MG TABLET 10 MG PO (21:14)
[2022-05-01] MEDS: MAGNESIUM OXIDE 400 MG TABLET 200 MG PO (21:14)
[2022-05-01] MEDS: POTASSIUM CHLORIDE 10 MEQ TAB PO (21:14)
[2022-05-02] VITALS (16 sets, daily range): BP systolic 110–134; BP diastolic 58–78; PULSE 56–70; RESP 16–19; TEMP 36.3–36.6; O2SAT 88–100
[2022-05-02] MEDS: ALBUTEROL/IPRATROPIUM 3 ML AMPUL INH ×6 (03:03→23:40)
[2022-05-02] MEDS: CODEINE/GUAIFENESIN LIQUID 5ML UDC 5 ML PO ×2 (05:31→13:36)
[2022-05-02] MEDS: PANTOPRAZOLE DR 20 MG TABLET PO (05:31)
[2022-05-02 07:53] LABS: Add Manual Diff / Slide Review NO; Basophils Absolute Auto 0 /uL (0-100); Basophils Percent Auto 0.1 % (0-2); Eosinophils Absolute Auto 0 /uL (0-450); Hematocrit 37.1 % (36-46); Hemoglobin 12.7 g/dL (12.0-16.0); Lymphocytes Absolute Auto 1400 /uL (1100-4500); Lymphocytes Percent Auto 14.3 % (25-40); Mean Corpuscular HGB Conc 34.3 % (30-36); Mean Corpuscular Hemoglobin 32.3 PG (26-34); Mean Corpuscular Volume 94.3 fL (80-100); Monocytes Absolute Auto 1200 /uL (0-900); Monocytes Percent Auto 11.5 % (3-14); Neutrophils Absolute Auto 7400 /uL (1500-7000); Neutrophils Percent Auto 74.1 % (50-75); Platelet Count 282 X10^3/uL (150-400); Red Blood Cell Count 3.94 X10^6/uL (4.0-5.2); Red Cell Distribution Width 12.8 % (11.6-14.8)
[2022-05-02 07:59] LABS: BUN Creatinine Ratio 32.1 (6-22); Blood Urea Nitrogen 18 mg/dL (7-17); Calcium 9.4 mg/dL (8.4-10.2); Carbon Dioxide 37 mmol/L (22-32); Chloride 93 mmol/L (98-107); Estimated Glomerular Filt Rate > 60 mL/min (>60); Glucose 103 mg/dL (80-110); HEMOLYSIS < 15 (0-50); Magnesium 1.9 mg/dL (1.6-2.3); Potassium 3.8 mmol/L (3.4-5.1); Sodium 136 mmol/L (137-145)
--- NOTE | 2022-05-02 08:46 | P.PN_ITS ---
Subjective Subjective Date Patient Seen: 05/02/22 Interval history: Patient's breathing slowly improving but still having a cruddy cough. Exam Vital Signs (past 8 hours): - 05/02/22 01:00 05/02/22 03:09 05/02/22 03:09 Temperature Pulse Rate 56 L Respiratory Rate Blood Pressure 128/66 Pulse Oximetry 93 88 L 93 Oxygen Delivery Method Nasal Cannula Oxygen Flow Rate 3 6 6 05/02/22 04:30 05/02/22 05:00 05/02/22 07:32 Temperature 97.6 F Pulse Rate 70 Respiratory Rate 19 Blood Pressure 132/74 Pulse Oximetry 99 99 Oxygen Delivery Method Nasal Cannula Nasal Cannula Oxygen Flow Rate 3.5 3.5 3 05/02/22 07:00 Temperature Pulse Rate Respiratory Rate Blood Pressure Pulse Oximetry Oxygen Delivery Method Nasal Cannula Oxygen Flow Rate Fraction of Inspired Oxygen 32 SaO2/FiO2 Ratio 287 Oxygen Delivery Method Nasal Cannula Oxygen Flow Rate 3 Narrative Exam Narrative: General:? Patient is a moderately ill sounding and appearing female with an intractable wet gurgling cough audible wheezing in mild distress but not acute respiratory distress at this time. HEENT:? Normocephalic, atraumatic, extraocular muscles intact, oral pharynx is clear and mucous membranes are dry.? Neck is supple and symmetric, trachea is midline, no adenopathy, no thyroid enlargement, nontender, no masses palpated.? Negative for JVD Chest:? Increased work of breathing, labored, occasional retractions, tachypneic without nasal flaring. Lungs:? Auscultation of all lung funez are decreased greater in bilateral bases, equal, coarse, poor air exchange, wet, occasional diffuse rhonchi. Cardio:? Bradycardic rate and rhythm without murmur, rubs, or gallops, no carotid bruit, no cardiac pulsations present. Abdomen:? Soft nontender, negative for organomegaly, or masses.? Bowel sounds are present in all 4 quadrants without guarding or rebound, no CVA tenderness. Musculoskeletal:? Muscle strength and tone are equal within normal limits, no deformity, crepitus, effusions, cyanosis, clubbing or edema present.? Full range of motion intact radial and pedal pulses are normal. Skin:? Warm mild observable diaphoresis and intact without rashes, ulcerations or petechiae.? Neuro:? Alert and orientated x3, moves all extremities, sensation to touch intact, no gross deficits noted of cranial nerves. Patient is rather restless in bed trying to find a position to improve oxygenation Psych:? Patient is a delightful well-kept appearance, appropriate affect, mental status attitude thought context and judgment are slightly altered, appears age appropriate . Objective Labs Result Diagrams: 05/02/22 07:16 05/02/22 07:16 Labs: Laboratory Results - last 24 hr 05/01/22 05/01/22 05/02/22 11:05 12:05 07:16 WBC 10.0 RBC 3.94 L Hgb 12.7 Hct 37.1 MCV 94.3 MCH 32.3 MCHC 34.3 RDW 12.8 Plt Count 282 Neut % (Auto) 74.1 Lymph % (Auto) 14.3 L [place] % (Auto) 11.5 Eos % (Auto) 0.0 L Baso % (Auto) 0.1 Neut # (Auto) 7400 H Lymph # (Auto) 1400 [place] # (Auto) 1200 H Eos # (Auto) 0 Baso # (Auto) 0 Sodium Potassium Chloride Carbon Dioxide BUN Creatinine Estimated GFR BUN/Creatinine Ratio Glucose Calcium Magnesium Troponin I < 0.012 Urine Color Yellow Urine Appearance Clear Urine pH 6.5 Ur Specific [place] 1.010 Urine Protein Negative Urine Glucose (UA) Negative Urine Ketones Negative Urine Occult Blood Negative Urine Nitrate Negative Urine Bilirubin Negative Urine Urobilinogen 0.2 Ur Leukocyte Esterase Negative Urine RBC None seen Urine WBC None seen Urine Bacteria None seen Ur Culture Indicated? Cult not indicated 05/02/22 07:16 WBC RBC Hgb Hct MCV MCH MCHC RDW Plt Count Neut % (Auto) Lymph % (Auto) [place] % (Auto) Eos % (Auto) Baso % (Auto) Neut # (Auto) Lymph # (Auto) [place] # (Auto) Eos # (Auto) Baso # (Auto) Sodium 136 L Potassium 3.8 Chloride 93 L Carbon Dioxide 37 H BUN 18 H Creatinine 0.56 Estimated GFR > 60 BUN/Creatinine Ratio 32.1 H Glucose 103 Calcium 9.4 Magnesium 1.9 Troponin I Urine Color Urine Appearance Urine pH Ur Specific [place] Urine Protein Urine Glucose (UA) Urine Ketones Urine Occult Blood Urine Nitrate Urine Bilirubin Urine Urobilinogen Ur Leukocyte Esterase Urine RBC Urine WBC Urine Bacteria Ur Culture Indicated? PFSH Medical History Acute laryngitis Coronary artery disease Depression Essential hypertension Exacerbation of asthma GERD (gastroesophageal reflux disease) Viral URI with cough Surgical History History of coronary artery bypass graft Social History household members: spouse Smoking Status: Former smoker alcohol intake: current Assessment & Plan Assessment & Plan narrative: 1. Acute respiratory failure with mild intermittent hypoxia, asthma exacerbation, moderate, acute on chronic, present on admission Possible atypical pneumonia, significant respiratory viral outbreak-a respiratory panel pending -ED patient was orthopneic, short of breath, tachypneic, mildly elevated blood pressure, hypoxic 78% on room air and wheezing. -admit vitals: 98.4?, BP 138/69, HR 65, R 20, O2 saturation 95% on 2 L nasal cannula. -Chest x-ray was negative. -CTA demonstrated marked enlargement of the pulmonary arteries, and an aneurysmal dilatation of the ascending thoracic aorta, with indistinct irregular ground-glass opacities within the lung bases. -NO WBC or left shift ? -ordered magnesium, procalcitonin, blood cultures, lipids, TSH, urine culture, sputum culture -symptom management respiratory consult, prednisone, DuoNebs, respiratory panel, guaifenesin with codeine. -holding albuterol HFA inhaler, continue Flovent 2 Heart Failure, new onset, acute, with a history of coronary artery disease/CABG x5, chronic present on admission -BNP 657-20 mg IV Lasix once daily gentle diuresis -initial troponin WNL, trend x3 -patient's cardiology is managed by [facility]? -last echo and stress in 2020 and states that it was normal and has no history of heart failure. -patient request to follow up with her group regarding repeat echo and stress test -procalcitonin WNL -consider echo-patient would like to complete echo with her cardiology team. -lipids ordered -continue ASA 3. Hypertension, essential, possible pulmonary, acute on chronic, present on admission -continue amlodipine, losartan, HCTZ, metoprolol, Mag, potassium 4. Depression, chronic, present on admission -continue fluoxetine 5. GERD, chronic, present on admission -continue omeprazole Code status:Full Surrogate decision maker: Spouse Michael Ulloa COVID PCR:Negative DVT/VTE prophylaxis: Lovenox and SCDs Disposition:?1-2 days to improve O2 requirements secondary to rhinovirus induced asthma exac Time Spent With Patient Critical Care time: I spent a total of [] minutes of critical care time on this patient's care today; this time is exclusive of procedural time. Quality VTE Deep Vein Thrombosis/Pulmonary Embolism Present on Admission: No
[2022-05-02] MEDS: predniSONE 20 MG TABLET 40 MG PO (10:38)
[2022-05-02] MEDS: ENOXAPARIN 40 MG/0.4 ML SYRINGE SUBCUT (10:38)
[2022-05-02] MEDS: FUROSEMIDE 20 MG/2 ML VIAL IV (10:38)
[2022-05-02] MEDS: hydroCHLOROthiazide 25 MG TABLET PO (10:38)
[2022-05-02] MEDS: METOPROLOL ER 50 MG TABLET 100 MG PO (10:39)
[2022-05-02] MEDS: ASPIRIN EC 325 MG TABLET PO (10:39)
[2022-05-02] MEDS: ATORVASTATIN 20 MG TABLET 40 MG PO (10:39)
[2022-05-02] MEDS: FLUoxetine 20 MG CAPSULE PO (10:39)
[2022-05-02] MEDS: LOSARTAN 50 MG TABLET PO ×2 (10:39→22:22)
--- NOTE | 2022-05-02 11:20 | DIET.CONS2 ---
Dietary Inpatient Consultation Note Admission Date: 05/01/2022 00:[address] for BMI 29.2. Pt admitted for acute respiratory failure. Pt not appropriate for overweight counselling at this time. Please reconsult RD if pt desires conversation on topic prior to d/c. Diet: 05/01/22 Breakfast Heart Healthy Diet Diet Modifications: Nutrition Percent Meal Consumed 75% 05/01/22 18:20 Percent Meal Consumed 50% 05/01/22 13:34 Electronically Signed by: Lidya Spangler 05/02/22 11:20 Clinical Dietitian [address] [id number]
--- NOTE | 2022-05-02 12:59 | CM.DANOTE ---
DCP Assessment: Payor confirmed: [employer] PCP confirmed: Lynn Jackson @ [facility] in [place] Pt is a 72 y.o. F who presented to the ER with shortness of breath. Pt diagnosed with viral URI. Pt brought up to the AC unit for further management and evaluation of her symptoms. DCP met with pt over the phone due to isolation precautions to discuss discharge needs. DCP introduced herself and role. Pt states that she is independent at baseline and lives with her , Michael, in a double story house in [place]. Pt states that she still drives her car and her is also very active and independent. Pt denies any resources at this time. Pt instructed to ask the RN to get a hold of DCP due to not being able to update white board. Pt thankful for discussion. P: Unclear needs. R/o home O2. Anticipate discharging home via spouse POV. Tanja Cruz RN/CLIVE Discharge Planning/Care Management CM Discharge Assessment Start: 05/02/22 11:36 Freq: Status: Active Protocol: Document 05/02/22 11:36 [email or web address] (Rec: 05/02/22 11:36 [id number]) Discharge Planning Assessment Assigned Electrical Tech Tanja Cruz RN/CLIVE Advance Directives? No History Provided By Patient Prior Living Arrangements House Household Members spouse Type of transporation used prior to Drives own vehicle admit Independent with ADL's Yes Is patient alert and oriented? Yes Discharge Plan Home Transportation Arrangement Spouse POV Referrals Initiated None needed Additional Comment At this time. Whiteboard Updated in Patient Room with No name and ext. # of Electrical Tech Comment Unable to enter room due to isolation precautions. Review Status In Process Please Provide Date Initial DC 05/02/22 Assessment Was Performed Next Review Type Continued Stay Review
[2022-05-02] MEDS: MAGNESIUM OXIDE 400 MG TABLET 200 MG PO (22:20)
[2022-05-02] MEDS: AMLODIPINE 5 MG TABLET 10 MG PO (22:21)
[2022-05-02] MEDS: POTASSIUM CHLORIDE 10 MEQ TAB PO (22:25)
[2022-05-03] VITALS (16 sets, daily range): BP systolic 98–144; BP diastolic 65–82; PULSE 63–73; RESP 17–20; TEMP 36.1–37.4; O2SAT 93–97
[2022-05-03] MEDS: PANTOPRAZOLE DR 20 MG TABLET PO (06:48)
[2022-05-03 06:57] LABS: BUN Creatinine Ratio 47.4 (6-22); Blood Urea Nitrogen 27 mg/dL (7-17); Calcium 9.7 mg/dL (8.4-10.2); Carbon Dioxide 33 mmol/L (22-32); Chloride 93 mmol/L (98-107); Estimated Glomerular Filt Rate > 60 mL/min (>60); Glucose 96 mg/dL (80-110); HEMOLYSIS < 15 (0-50); Magnesium 1.8 mg/dL (1.6-2.3); Potassium 3.5 mmol/L (3.4-5.1); Sodium 134 mmol/L (137-145)
[2022-05-03 07:12] LABS: Add Manual Diff / Slide Review NO; Basophils Absolute Auto 0 /uL (0-100); Basophils Percent Auto 0.2 % (0-2); Eosinophils Absolute Auto 0 /uL (0-450); Eosinophils Percent Auto 0.1 % (2-4); Hematocrit 38.7 % (36-46); Hemoglobin 13.2 g/dL (12.0-16.0); Lymphocytes Absolute Auto 2000 /uL (1100-4500); Lymphocytes Percent Auto 17.8 % (25-40); Mean Corpuscular HGB Conc 34.2 % (30-36); Mean Corpuscular Hemoglobin 32.2 PG (26-34); Mean Corpuscular Volume 94.1 fL (80-100); Monocytes Absolute Auto 1400 /uL (0-900); Neutrophils Absolute Auto 7700 /uL (1500-7000); Neutrophils Percent Auto 68.9 % (50-75); Platelet Count 299 X10^3/uL (150-400); Red Blood Cell Count 4.12 X10^6/uL (4.0-5.2); Red Cell Distribution Width 12.8 % (11.6-14.8); White Blood Cell Count 11.1 X10^3/uL (4.5-11.0)
--- NOTE | 2022-05-03 08:52 | P.PN_ITS ---
Subjective Subjective Date Patient Seen: 05/03/22 Interval history: Patient slowly improving. Likely needs one more day. Still on O2. Had trouble sleeping last night. Exam Vital Signs (past 8 hours): - 05/03/22 04:00 05/03/22 01:00 05/03/22 05:00 Temperature 99.2 F Pulse Rate 65 Respiratory Rate 17 Blood Pressure 144/82 H Pulse Oximetry 95 95 96 Oxygen Delivery Method Nasal Cannula Nasal Cannula Oxygen Flow Rate 3.5 3.5 3.5 Fraction of Inspired Oxygen 32 SaO2/FiO2 Ratio 287 Oxygen Delivery Method Nasal Cannula Oxygen Flow Rate 3.5 Narrative Exam Narrative: General:? Patient is a moderately ill sounding and appearing female with an intractable wet gurgling cough audible wheezing in mild distress but not acute respiratory distress at this time. HEENT:? Normocephalic, atraumatic, extraocular muscles intact, oral pharynx is clear and mucous membranes are dry.? Neck is supple and symmetric, trachea is midline, no adenopathy, no thyroid enlargement, nontender, no masses palpated.? Negative for JVD Chest:? Increased work of breathing, labored, occasional retractions, tachypneic without nasal flaring. Lungs:? Auscultation of all lung funez are decreased greater in bilateral bases, equal, coarse, poor air exchange, wet, occasional diffuse rhonchi. Cardio:? Bradycardic rate and rhythm without murmur, rubs, or gallops, no carotid bruit, no cardiac pulsations present. Abdomen:? Soft nontender, negative for organomegaly, or masses.? Bowel sounds are present in all 4 quadrants without guarding or rebound, no CVA tenderness. Musculoskeletal:? Muscle strength and tone are equal within normal limits, no deformity, crepitus, effusions, cyanosis, clubbing or edema present.? Full range of motion intact radial and pedal pulses are normal. Skin:? Warm mild observable diaphoresis and intact without rashes, ulcerations or petechiae.? Neuro:? Alert and orientated x3, moves all extremities, sensation to touch intact, no gross deficits noted of cranial nerves. Patient is rather restless in bed trying to find a position to improve oxygenation Psych:? Patient is a delightful well-kept appearance, appropriate affect, mental status attitude thought context and judgment are slightly altered, appears age appropriate . Objective Labs Result Diagrams: 05/03/22 06:11 05/03/22 06:11 Labs: Laboratory Results - last 24 hr 05/03/22 05/03/22 06:11 06:11 WBC 11.1 H RBC 4.12 Hgb 13.2 Hct 38.7 MCV 94.1 MCH 32.2 MCHC 34.2 RDW 12.8 Plt Count 299 Neut % (Auto) 68.9 Lymph % (Auto) 17.8 L [place] % (Auto) 13.0 Eos % (Auto) 0.1 L Baso % (Auto) 0.2 Neut # (Auto) 7700 H Lymph # (Auto) 2000 [place] # (Auto) 1400 H Eos # (Auto) 0 Baso # (Auto) 0 Sodium 134 L Potassium 3.5 Chloride 93 L Carbon Dioxide 33 H BUN 27 H Creatinine 0.57 Estimated GFR > 60 BUN/Creatinine Ratio 47.4 H Glucose 96 Calcium 9.7 Magnesium 1.8 PFSH Medical History Acute laryngitis Coronary artery disease Depression Essential hypertension Exacerbation of asthma GERD (gastroesophageal reflux disease) Viral URI with cough Surgical History History of coronary artery bypass graft Social History household members: spouse Smoking Status: Former smoker alcohol intake: current Assessment & Plan Assessment & Plan narrative: 1. Acute respiratory failure with mild intermittent hypoxia, asthma exacerbation, moderate, acute on chronic, present on admission Possible atypical pneumonia, significant respiratory viral outbreak-a respiratory panel pending -ED patient was orthopneic, short of breath, tachypneic, mildly elevated blood pressure, hypoxic 78% on room air and wheezing. -admit vitals: 98.4?, BP 138/69, HR 65, R 20, O2 saturation 95% on 2-3L nasal cannula. -Chest x-ray was negative. -CTA demonstrated marked enlargement of the pulmonary arteries, and an aneurysmal dilatation of the ascending thoracic aorta, with indistinct irregular ground-glass opacities within the lung bases. -NO WBC or left shift ? -symptom management respiratory consult, prednisone, DuoNebs, scheduled guaifenesin with codeine. -holding albuterol HFA inhaler, continue Flovent -likely needs 1 more day to wean O2 2. Heart Failure, new onset, acute, with a history of coronary artery disease/C ABG x5, chronic present on admission -BNP 657-20 mg IV Lasix once daily gentle diuresis -initial troponin WNL, trend x3 -patient's cardiology is managed by [facility]? -last echo and stress in 2020 and states that it was normal and has no history of heart failure. -patient request to follow up with her group regarding repeat echo and stress test -procalcitonin WNL -considered echo-patient would like to complete echo with her cardiology team. -LDL 98 -continue ASA 3. Hypertension, essential, possible pulmonary, acute on chronic, present on admission -continue amlodipine, losartan, HCTZ, metoprolol, Mag, potassium 4. Depression, chronic, present on admission -continue fluoxetine 5. GERD, chronic, present on admission -continue omeprazole 6. Insomnia -start melatonin and trazodone PRN if not working Code status:Full Surrogate decision maker: Spouse Michael Ulloa JOHN PCR:Negative DVT/VTE prophylaxis: Lovenox and SCDs Disposition:?1-2 days to improve O2 requirements secondary to rhinovirus induced asthma exac Time Spent With Patient Critical Care time: I spent a total of [] minutes of critical care time on this patient's care today; this time is exclusive of procedural time. Quality VTE Deep Vein Thrombosis/Pulmonary Embolism Present on Admission: No
[2022-05-03] MEDS: ALBUTEROL/IPRATROPIUM 3 ML AMPUL INH ×4 (08:55→19:25)
[2022-05-03] MEDS: hydroCHLOROthiazide 25 MG TABLET PO (09:16)
[2022-05-03] MEDS: METOPROLOL ER 50 MG TABLET 100 MG PO (09:16)
[2022-05-03] MEDS: predniSONE 20 MG TABLET 40 MG PO (09:16)
[2022-05-03] MEDS: ATORVASTATIN 20 MG TABLET 40 MG PO (09:16)
[2022-05-03] MEDS: ASPIRIN EC 325 MG TABLET PO (09:17)
[2022-05-03] MEDS: FUROSEMIDE 20 MG/2 ML VIAL IV (09:17)
[2022-05-03] MEDS: LOSARTAN 50 MG TABLET PO ×2 (09:17→20:34)
[2022-05-03] MEDS: FLUoxetine 20 MG CAPSULE PO (09:17)
[2022-05-03] MEDS: ENOXAPARIN 40 MG/0.4 ML SYRINGE SUBCUT (09:17)
[2022-05-03] MEDS: CODEINE/GUAIFENESIN LIQUID 5ML UDC 5 ML PO (15:45)
[2022-05-03] MEDS: POTASSIUM CHLORIDE 10 MEQ TAB PO (20:34)
[2022-05-03] MEDS: MAGNESIUM OXIDE 400 MG TABLET 200 MG PO (20:35)
[2022-05-03] MEDS: MELATONIN 3 MG TABLET 6 MG PO (20:35)
[2022-05-03] MEDS: AMLODIPINE 5 MG TABLET 10 MG PO (20:35)
--- NOTE | 2022-05-03 22:30 | RT ---
Unable to administer med; pt asleep at this time.
[2022-05-04] VITALS (8 sets, daily range): BP systolic 106–119; BP diastolic 69–78; PULSE 53–74; RESP 16–17; TEMP 36.2–36.5; O2SAT 89–96
[2022-05-04] MEDS: CODEINE/GUAIFENESIN LIQUID 5ML UDC 5 ML PO ×2 (01:54→08:23)
[2022-05-04 07:23] LABS: Add Manual Diff / Slide Review NO; Basophils Absolute Auto 0 /uL (0-100); Basophils Percent Auto 0.3 % (0-2); Eosinophils Absolute Auto 0 /uL (0-450); Eosinophils Percent Auto 0.2 % (2-4); Hematocrit 38.7 % (36-46); Hemoglobin 13.3 g/dL (12.0-16.0); Lymphocytes Absolute Auto 1700 /uL (1100-4500); Lymphocytes Percent Auto 15.9 % (25-40); Mean Corpuscular HGB Conc 34.3 % (30-36); Mean Corpuscular Hemoglobin 32.2 PG (26-34); Mean Corpuscular Volume 93.8 fL (80-100); Monocytes Absolute Auto 1400 /uL (0-900); Monocytes Percent Auto 12.8 % (3-14); Neutrophils Absolute Auto 7500 /uL (1500-7000); Neutrophils Percent Auto 70.8 % (50-75); Platelet Count 299 X10^3/uL (150-400); Red Blood Cell Count 4.12 X10^6/uL (4.0-5.2); Red Cell Distribution Width 12.8 % (11.6-14.8); White Blood Cell Count 10.6 X10^3/uL (4.5-11.0)
[2022-05-04 07:33] LABS: BUN Creatinine Ratio 38.3 (6-22); Blood Urea Nitrogen 23 mg/dL (7-17); Calcium 9.1 mg/dL (8.4-10.2); Carbon Dioxide 34 mmol/L (22-32); Chloride 92 mmol/L (98-107); Estimated Glomerular Filt Rate > 60 mL/min (>60); Glucose 102 mg/dL (80-110); HEMOLYSIS < 15 (0-50); Magnesium 1.7 mg/dL (1.6-2.3); Sodium 133 mmol/L (137-145)
[2022-05-04] MEDS: FUROSEMIDE 20 MG/2 ML VIAL IV (08:19)
[2022-05-04] MEDS: PANTOPRAZOLE DR 20 MG TABLET PO (08:19)
[2022-05-04] MEDS: hydroCHLOROthiazide 25 MG TABLET PO (08:19)
[2022-05-04] MEDS: FLUoxetine 20 MG CAPSULE PO (08:19)
[2022-05-04] MEDS: LOSARTAN 50 MG TABLET PO (08:19)
[2022-05-04] MEDS: predniSONE 20 MG TABLET 40 MG PO (08:19)
[2022-05-04] MEDS: ENOXAPARIN 40 MG/0.4 ML SYRINGE SUBCUT (08:19)
[2022-05-04] MEDS: METOPROLOL ER 50 MG TABLET 100 MG PO (08:20)
[2022-05-04] MEDS: ASPIRIN EC 325 MG TABLET PO (08:23)
[2022-05-04] MEDS: ATORVASTATIN 20 MG TABLET 40 MG PO (09:08)
[2022-05-04] MEDS: ALBUTEROL/IPRATROPIUM 3 ML AMPUL INH (09:11)
--- NOTE | 2022-05-04 09:35 | P.DS_ITS ---
History of Present Illness History of Present Illness Date Patient Seen: 05/04/22 Time Patient Seen: 01:15 Chief complaint: Pulse ox @ 78 earlier, 85 now, Coughing, Asthma Narrative: Chanel Ulloa is a 72-year-old female history of CABG x5, essential hypertension, CAD, depression, GERD mild asthma, who presented to the ED with increasing shortness of breath, cough with difficulty breathing, coughing fits that are unrelenting, muscular chest discomfort/tightness from coughing, body aches, generally just feels unwell/ sick, worsening over the last 3-4 days. ? She denies any peripheral edema.? She states that for Thanksgiving they flew to [facility] they encountered multiple family members and friends who had the flu, she also picked up a diarrhea bug and had diarrhea for 2-3days, decreased appetite, and then came home on Sunday, 4 days ago.? Since then she has been sick ever since. In ED patient was orthopneic, short of breath, tachypneic, mildly elevated blood pressure, hypoxic 78% on room air and wheezing. Patient was seen at the walk-in clinic early or in the day was put on 5 mg of prednisone. When she did not improve and only continued to worsen came into the ED department. Patient states that her cardiac health is managed by the [facility] she had her last echo and stress in 2020 and states that it was normal and has no history of heart failure. Although I found patient to be a poor historian and unable to recall her medications Patient on admit denies headache, changes in vision, weakness, numbness, tingling, falls, head injury, skin infections, wounds, urinary urgency frequency dysuria, hematuria, hematemesis, melena, recent changes to her medication. Denies history of blood clots. At the time of admit patient's vitals are stable temp 98.4?, BP 138/69, HR 65, R 20, O2 saturation 95% on 2 L nasal cannula. Patient is ill-appearing has a fairly intractable cough wet coarse audible wheezing, and she is a poor historian unable to give a coherent hx, HPI, Meds, family hx ROS. Patient has no WBC or left shift H&H 11.9/34.6 patient's labs are predominantly unremarkable with the exception of low magnesium 1.2 procalcitonin WNL, BNP 657, creatinine clearance 95. Chest x-ray was negative for any acute cardiopulmonary process, but patient's CTA demonstrated marked enlargement of the pulmonary arteries, and an aneurysmal dilatation of the ascending thoracic aorta, with indistinct irregular ground-glass opacities within the lung bases.? Patient admitted with acute respiratory failure with mild hypoxia,and asthma exacerbation. Discharge Providers Provider Date of admission: 05/01/22 00:35 Discharge Date: 05/04/22 Primary care physician: Doctor Maite MD Consults: 05/01/22 00:55 Consult to Dietitian, Adult Routine Comment: Reason For Exam: BMI 29.5 Discharge provider: Prudencio Zafar DO Summary Time Spent with Patient Time spent: Greater than 30 minutes Exam Vital Signs (past 8 hours): - 05/04/22 02:01 05/04/22 05:00 05/04/22 06:00 Temperature 97.7 F 97.7 F Pulse Rate 58 L 53 L Respiratory Rate 17 17 Blood Pressure 109/69 106/78 Pulse Oximetry 94 93 94 Oxygen Delivery Method Nasal Cannula Oxygen Flow Rate 2 2 0 05/04/22 08:09 05/04/22 09:11 Temperature 97.2 F L Pulse Rate 70 74 Respiratory Rate 16 16 Blood Pressure 119/71 Pulse Oximetry 95 92 Oxygen Delivery Method Room Air Oxygen Flow Rate 0 Fraction of Inspired Oxygen 28 SaO2/FiO2 Ratio 339 Oxygen Delivery Method Room Air Oxygen Flow Rate 0 Narrative Exam Narrative: General:? patient is in no acute distress, has coughing fits but otherwise looking better HEENT:? Normocephalic, atraumatic, extraocular muscles intact, oral pharynx is clear and mucous membranes are dry.? Neck is supple and symmetric, trachea is midline, no adenopathy, no thyroid enlargement, nontender, no masses palpated.? Negative for JVD Chest:? Increased work of breathing, labored, occasional retractions, tachypneic without nasal flaring. Lungs:? Auscultation of all lung funez are decreased greater in bilateral bases, equal, coarse, poor air exchange, wet, occasional diffuse rhonchi. Cardio:? Bradycardic rate and rhythm without murmur, rubs, or gallops, no carotid bruit, no cardiac pulsations present. Abdomen:? Soft nontender, negative for organomegaly, or masses.? Bowel sounds are present in all 4 quadrants without guarding or rebound, no CVA tenderness. Musculoskeletal:? Muscle strength and tone are equal within normal limits, no deformity, crepitus, effusions, cyanosis, clubbing or edema present.? Full range of motion intact radial and pedal pulses are normal. Skin:? Warm mild observable diaphoresis and intact without rashes, ulcerations or petechiae.? Neuro:? Alert and orientated x3, moves all extremities, sensation to touch intact, no gross deficits noted of cranial nerves. Patient is rather restless in bed trying to find a position to improve oxygenation Psych:? Patient is a delightful well-kept appearance, appropriate affect, mental status attitude thought context and judgment are slightly altered, appears age appropriate . Objective Labs Result Diagrams: 05/04/22 07:07 05/04/22 07:07 Labs: Laboratory Results - last 24 hr 05/04/22 05/04/22 07:07 07:07 WBC 10.6 RBC 4.12 Hgb 13.3 Hct 38.7 MCV 93.8 MCH 32.2 MCHC 34.3 RDW 12.8 Plt Count 299 Neut % (Auto) 70.8 Lymph % (Auto) 15.9 L [place] % (Auto) 12.8 Eos % (Auto) 0.2 L Baso % (Auto) 0.3 Neut # (Auto) 7500 H Lymph # (Auto) 1700 [place] # (Auto) 1400 H Eos # (Auto) 0 Baso # (Auto) 0 Sodium 133 L Potassium 3.0 L Chloride 92 L Carbon Dioxide 34 H BUN 23 H Creatinine 0.60 Estimated GFR > 60 BUN/Creatinine Ratio 38.3 H Glucose 102 Calcium 9.1 Magnesium 1.7 PFSH Medical History Acute laryngitis Coronary artery disease Depression Essential hypertension Exacerbation of asthma GERD (gastroesophageal reflux disease) Viral URI with cough Surgical History History of coronary artery bypass graft Social History household members: spouse Smoking Status: Former smoker alcohol intake: current Discharge Assessment & Plan Assessment and Plan Assessment: 1. Acute respiratory failure with mild intermittent hypoxia, asthma exacerbation, moderate, acute on chronic, present on admission Possible atypical pneumonia, significant respiratory viral outbreak-a respiratory panel pending -ED patient was orthopneic, short of breath, tachypneic, mildly elevated blood pressure, hypoxic 78% on room air and wheezing. -admit vitals: 98.4?, BP 138/69, HR 65, R 20, O2 saturation 95% on 2-3L nasal cannula. -Chest x-ray was negative.? -CTA demonstrated marked enlargement of the pulmonary arteries, and an aneurysm al dilatation of the ascending thoracic aorta, with indistinct irregular ground- glass opacities within the lung bases. -NO WBC or left shift ? -symptom management respiratory consult, prednisone, DuoNebs, scheduled guaifenesin with codeine. -holding albuterol HFA inhaler, continue Flovent -likely needs 1 more day to wean O2 2. Heart Failure, new onset, acute, with a history of coronary artery dis ease/CABG x5, chronic present on admission -BNP 657-20 mg IV Lasix once daily gentle diuresis -initial troponin WNL, trend x3 -patient's cardiology is managed by [facility]? -last echo and stress in 2020 and states that it was normal and has no history of heart failure. -patient request to follow up with her group regarding repeat echo and stress test -procalcitonin WNL -considered echo-patient would like to complete echo with her cardiology team. -LDL 98 -continue ASA 3. Hypertension, essential, possible pulmonary, acute on chronic, present on admission -continue amlodipine, losartan, HCTZ, metoprolol, Mag, potassium 4. Depression, chronic, present on admission -continue fluoxetine 5. GERD, chronic, present on admission -continue omeprazole Plan of Treatment: Admitted for asthma exacerbation due to rhinovirus. Initially needed up to 3L NC but this was weaned off after 4 days with steroid, nebs and cough medicine treatments. She was able to discharge home on room air. Discharge Plan Discharge Plan Patient Disposition: Home Provider Discharge Comment: You were admitted with an asthma exacerbation caused by rhinovirus. You improved slowly and were able to come off oxygen with steroids, nebs and cough medicine. You'll take one more day of steroids at home. Discharge orders & Medications Prescriptions: New prednisone 20 mg Tablet 40 mg PO DAILY Qty: 2 0RF Rx Instructions: take on 05/05 Continued atorvastatin 40 mg tablet 40 mg PO DAILY fluticasone propionate [Flovent HFA] 110 mcg/actuation HFA aerosol inhaler 2 puff INHALATION BID losartan 50 mg Tablet 50 mg PO BID Rx Instructions: am and afternoon metoprolol succinate 100 mg tablet extended release 24 hr 100 mg PO DAILY potassium chloride 10 mEq Tablet Extended Release 10 meq PO BEDTIME amlodipine 10 mg tablet 10 mg PO BEDTIME omeprazole 20 mg Capsule,Delayed Release(Dr/Ec) 20 mg PO DAILY hydrochlorothiazide 25 mg tablet 25 mg PO DAILY albuterol sulfate 90 mcg/actuation Hfa Aerosol Inhaler 2 puff INHALATION QID PRN (Reason: Shortness Of Breath Or Wheezing) fluoxetine 20 mg capsule 20 mg PO DAILY magnesium oxide 250 mg magnesium Tablet 250 mg PO BEDTIME aspirin 325 mg Capsule 325 mg PO BEDTIME Follow up/Referrals: Miscellaneous,DoctorMD [Primary Care Provider] - Discharge Data Primary Care Provider: Maite,Doctor Quality VTE Deep Vein Thrombosis/Pulmonary Embolism Present on Admission: No
== END 2022-05-04 10:50 | disposition home or self-care (01) | DRG 193 ==
LOC: ED 22:48 → AC 05-01 00:36
PROVIDERS: Admitting Provider Nurse Practitioner Family; Emergency Provider Emergency Medicine; Referring Provider Emergency Medicine; Visit Provider Nurse Practitioner Family
DX: J18.9 Pneumonia, unspecified organism (principal); J96.01 Acute respiratory failure with hypoxia; J45.901 Unspecified asthma with (acute) exacerbation; I25.10 Atherosclerotic heart disease of native coronary artery without angina pectoris; I50.9 Heart failure, unspecified; I11.0 Hypertensive heart disease with heart failure; F32.A Depression, unspecified; K21.9 Gastro-esophageal reflux disease without esophagitis; G47.00 Insomnia, unspecified; I27.20 Pulmonary hypertension, unspecified; B97.89 Other viral agents as the cause of diseases classified elsewhere; Z95.1 Presence of aortocoronary bypass graft; Z87.891 Personal history of nicotine dependence; Z20.822 Contact with and (suspected) exposure to COVID-19
CPT/HCPCS: 0241U; 36415; 71045; 71046; 71275; 80048; 80053; 80061; 81001; 83605; 83735; 83880; 84145; 84443; 84484; 85025; 85610; 87633; 93005; 93010; 94640; 94760; 96365; 96375; 99284; J1650; J1940; J2930; J3475; J7613; Q9967

== ENCOUNTER → 2024-02-06 09:45 | Outpatient (CLI) | payer OTHER, SELFPAY ==
[2022-05-01 01:35] VITALS: BMI 29.1
[2024-02-06 11:24] LABS: Alanine Aminotransferase 51 IU/L (<35); Albumin 4.3 g/dL (3.5-5.0); Albumin Globulin Ratio 1.3 (1.0-2.8); Alkaline Phosphatase 58 U/L (38-126); Aspartate Aminotransferase 52 IU/L (14-36); BUN Creatinine Ratio 33.9 (6-22); Bilirubin Total 0.9 mg/dL (0.2-1.3); Blood Urea Nitrogen 20 mg/dL (7-17); Calcium 10.3 mg/dL (8.4-10.2); Carbon Dioxide 27 mmol/L (22-32); Chloride 99 mmol/L (98-107); Cholesterol 168 mg/dL (140-199); Estimated Glomerular Filt Rate > 60 mL/min (>60); Globulin 3.3 g/dL (1.7-4.1); Glucose 115 mg/dL (80-110); HDL Cholesterol 42 mg/dL (40-60); HEMOLYSIS < 15 (0-50); LDL Cholesterol Calculated 93 mg/dL (<100); Potassium 3.7 mmol/L (3.4-5.1); Sodium 136 mmol/L (137-145); Total Protein 7.6 g/dL (6.3-8.2); Triglycerides 167 mg/dL (35-150)
[2024-02-06 20:05] LABS: Hemoglobin A1C% w Est Avg Glu 5.3 % (4.0-6.0)
[2024-02-06 21:21] LABS: Gamma Glutamyl Transpeptidase 73 U/L (12-43)
== END ==
LOC: LAB 09:46
PROVIDERS: PCP Internal Medicine; Referring Provider Internal Medicine; Visit Provider Internal Medicine
DX: Z00.00 Encounter for general adult medical examination without abnormal findings (principal); R73.03 Prediabetes; E78.2 Mixed hyperlipidemia
CPT/HCPCS: 36415; 80053; 80061; 82977; 83036